=== PATIENT | male | born 1990 | race Caucasian/White ===

== ENCOUNTER 2019-04-05 14:54 | Emergency (ER) | payer OTHER ==
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
[2019-04-05 17:47] VITALS: BP 121/78
--- NOTE | 2019-04-05 23:15 | EKG REPORT ---
SEVERITY:- NORMAL ECG - SINUS RHYTHM : Confirmed by: José Miguel Mcmanus 05-Apr-2019 23:14:44
== END 2019-04-05 17:48 | disposition home or self-care (01) ==
LOC: ER 14:54
DX: S20.219A Contusion of unspecified front wall of thorax, initial encounter (principal); R07.1 Chest pain on breathing; V47.5XXA Car driver injured in collision with fixed or stationary object in traffic accident, initial encounter; Z88.1 Allergy status to other antibiotic agents; Z88.0 Allergy status to penicillin; Z87.891 Personal history of nicotine dependence
CPT/HCPCS: 71046; 71120; 93005; 93010; 99284